=== PATIENT | female | born 1995 | race Caucasian/White ===

== ENCOUNTER → 2018-12-18 08:33 | Outpatient (CLI) | payer OTHER, SELFPAY ==
--- NOTE | 2018-12-18 08:38 | US_ITS ---
STUDY: ABDOMINAL ULTRASOUND - RIGHT UPPER QUADRANT REASON FOR VISIT: Female, 23 years old. 5 year history of upper mid abdominal pain. TECHNIQUE: Ultrasound evaluation of the right upper quadrant was performed with real-time and static arango-scale imaging. TECHNICAL QUALITY: Adequate. COMPARISON: Comparison is made with prior study March 28, 2014. FINDINGS: Liver: The liver measures 14.7 cm. There is normal echogenicity of the liver. The bile ducts are within normal limits. There is hepatic color flow. The direction of portal flow is hepatopetal. There is no demonstrated mass lesion. Gallbladder: Normal distended gallbladder. The gallbladder wall measures 2.3 mm. There is a negative sonographic Stark's sign. There is no pericholecystic fluid. There are no gallstones. Common Bile Duct (C.B.D.): The common bile duct measures 3.0 mm. Pancreas: Normal size of the head, body and tail of the pancreas. There is normal echogenicity of the pancreas. There is no demonstrated pancreatic mass or cyst. Right Kidney: Normal size of the right kidney. The right kidney measures 10.9 cm x 5.4 cm x 5.1 cm. Normal renal cortex. The right cortex measures 1.9 cm. There is no demonstrated renal mass or cyst. There is no right hydronephrosis. No hernia is seen along the linea alba. US/Abdomen Limited IMPRESSION: Normal right upper quadrant ultrasound examination. Electronically Signed: rBaden Tejada MD at 12:36 EST , Service support ,
== END ==
LOC: US 08:36
PROVIDERS: Family Provider Family Medicine; PCP Family Medicine; Referring Provider Family Medicine; Visit Provider Family Medicine
DX: K46.9 Unspecified abdominal hernia without obstruction or gangrene (principal)
CPT/HCPCS: 76705

== ENCOUNTER → 2019-12-04 12:31 | Outpatient (CLI) | payer OTHER, SELFPAY ==
[2019-02-11 08:12] VITALS: BMI 22.6
[2019-12-04 14:21] LABS: hCG Titer Quant., Serum 179 mIU/mL (1-3)
== END ==
PROVIDERS: PCP Family Medicine; Referring Provider Obstetrics & Gynecology; Visit Provider Obstetrics & Gynecology
DX: Z32.01 Encounter for pregnancy test, result positive (principal)
CPT/HCPCS: 36415; 84702

== ENCOUNTER → 2019-12-06 13:25 | Outpatient (CLI) | payer OTHER, SELFPAY ==
[2019-02-11 08:12] VITALS: BMI 22.6
[2019-12-06 14:53] LABS: hCG Titer Quant., Serum 387 mIU/mL (1-3)
== END ==
LOC: MTLAB 13:28
PROVIDERS: PCP Family Medicine; Referring Provider Obstetrics & Gynecology; Visit Provider Obstetrics & Gynecology
DX: Z32.01 Encounter for pregnancy test, result positive (principal)
CPT/HCPCS: 36415; 84702

== ENCOUNTER 2020-05-20 11:51 | Outpatient (CLI) | payer OTHER, SELFPAY ==
[2019-02-11 08:12] VITALS: BMI 22.6
[2020-05-20 12:07] VITALS: BP 109/67; PULSE 86; TEMP 36.5; O2SAT 100
[2020-05-20 12:09] VITALS: BMI 24.4
[2020-05-20 13:09] LABS: Fetal Fibronectin Negative
--- NOTE | 2020-05-20 16:56 | OB.TRI.NOTE ---
History of Present Illness Was patient seen by the physician?: Yes Reason For Visit: R/O LABOR Date of Service: 05/20/20 Final LIZ: 08/12/20 Gestational age: 28 Weeks and 0 Days History of Present Illness: Patient sent from office for threatened PTL Allergies No Known Allergies Allergy (Verified 02/11/19 08:12) Laboratory Studies: Laboratory Tests 05/20/20 Range/Units 11:40 Fibronectin Negative Physical Exam Cervix Dilation (cm): 1 - stable from office Station: -3 - 0 Effacement (%): 0 - posterior NST - FHR Rate Baby A Baseline: 130 Variability:: Moderate Accelerations:: 15 x 15 Decelerations:: Variable NST Reactive:: Yes Uterine Activity:: Irregular Impression/Plan 25yo female with threatened PTL Negative FFN Stable cervical exam & no regular ctxs thus no evidence PTL D/c home with PTL precautions
== END 2020-05-20 16:50 | disposition home or self-care (01) ==
PROVIDERS: PCP Family Medicine; Referring Provider Obstetrics & Gynecology; Visit Provider Obstetrics & Gynecology
DX: O60.03 Preterm labor without delivery, third trimester (principal); Z3A.28 28 weeks gestation of pregnancy
CPT/HCPCS: 59025; 59050; 82731; 99218; G0378

== ENCOUNTER 2020-07-19 03:40 | Outpatient (CLI) | payer OTHER, SELFPAY ==
[2020-07-19 03:55] VITALS: O2SAT 97
[2020-07-19 03:56] VITALS: BP 108/66; PULSE 82; TEMP 37
[2020-07-19 04:01] VITALS: BMI 25.0
[2020-07-19 04:36] LABS: ROM Internal Control Test YES-OK TO RESULT pt. (Internal QC)
[2020-07-19 04:37] LABS: ROM Patient Test Negative (Negative)
--- NOTE | 2020-07-19 13:41 | OB.TRI.NOTE ---
- Problem List (1) contractions Status: Acute (2) Uterine contractions Status: Acute (3) Leakage, amniotic fluid Status: Acute History of Present Illness Date of Service: 07/18/20 Was patient seen by the physician?: No Reason For Visit: R/O LABOR Date of Service: 07/18/20 Final LIZ: 08/12/20 Gestational age: 36 Weeks and 4 Days History of Present Illness: at 36w4d presents to labor and delivery with complaint of uterine contractions on and off throughout the day and progressively getting closer together. Unsure if leakage of fluid but some increased discharge. No vaginal bleeding. Good movement O: FHR 145, moderate variability, accels, reactive TOCO: Irregular SVE: 0.5cm, no gross ROM ROM pluse negative A:False Labor P: 1) Contractions decreased, ok to discharge home 2) Follow up as scheduled in office. Allergies No Known Allergies Allergy (Verified 07/19/20 04:32) Laboratory Studies: Laboratory Tests 07/19/20 Range/Units 04:05 Vag Amniotic Fld Detect Negative (Negative) Physical Exam Vitals: Vital Signs Temp Pulse BP Pulse Ox 98.6 F 82 108/66 97 07/19/20 03:56 07/19/20 03:56 07/19/20 03:56 07/19/20 03:55
== END 2020-07-19 06:15 | disposition home or self-care (01) ==
LOC: WPOUT 03:43 → OBT 03:43
PROVIDERS: PCP Family Medicine; Visit Provider Advanced Practice Midwife
DX: O47.03 False labor before 37 completed weeks of gestation, third trimester (principal); Z3A.36 36 weeks gestation of pregnancy
CPT/HCPCS: 59025; 59050; 84112; 99218; G0378

== ENCOUNTER 2020-07-25 14:05 | Outpatient (CLI) | payer OTHER, SELFPAY ==
[2020-07-25 14:21] VITALS: BP 109/71; PULSE 104
[2020-07-25 14:28] VITALS: BMI 24.7
[2020-07-25 16:14] VITALS: BP 109/67; PULSE 97
--- NOTE | 2020-07-26 10:32 | OB.TRI.NOTE ---
- Problem List (1) Uterine contractions Status: Acute (2) 37 weeks gestation of Status: Acute History of Present Illness Date of Service: 07/25/20 Was patient seen by the physician?: No Reason For Visit: R/O LABOR Final LIZ: 08/12/20 Gestational age: 37 Weeks and 4 Days History of Present Illness: With contractions for rule out labor Allergies No Known Allergies Allergy (Verified 07/26/20 02:05) Physical Exam Vitals: Vital Signs Pulse BP 97 109/67 07/25/20 16:14 07/25/20 16:14 NST - FHR Rate Baby A Baseline: 130 Variability:: Moderate Accelerations:: 15 x 15 Decelerations:: None NST Reactive:: Yes FHR Category:: Category I Uterine Activity:: ctx's q 2-4 min Impression/Plan NST reactive Cvx unchanged D/c home
== END 2020-07-25 16:40 | disposition home or self-care (01) ==
LOC: WPOUT 14:12 → WP 14:13
PROVIDERS: PCP Family Medicine; Referring Provider Obstetrics & Gynecology; Visit Provider Obstetrics & Gynecology
DX: O47.1 False labor at or after 37 completed weeks of gestation (principal); Z3A.37 37 weeks gestation of pregnancy
CPT/HCPCS: 59025; 59050; 99218; G0378

== ENCOUNTER 2020-07-26 01:51 | Inpatient (IN) | payer OTHER, SELFPAY ==
[2020-07-25 14:28] VITALS: BMI 24.7
[2020-07-26] VITALS (52 sets, daily range): BP systolic 84–123; BP diastolic 51–73; PULSE 74–101; RESP 16–18; TEMP 36.6–37.7; O2SAT 90–100; BMI 24.3
[2020-07-26] MEDS: Lactated Ringers 500 ML 999 ML IV ×2 (02:02→03:23)
[2020-07-26 02:11] LABS: Absolute Lymphocyte Count 1.57 X10^3/uL (0.83-4.51); Absolute Neutrophil Count 8.2 X10^3/uL (2.0-7.7); Basophil# 0.03 X10^3/uL; Basophil% 0.3 % (0-1); Eosinophil# 0.15 X10^3/uL; Eosinophils% 1.4 % (0-5); Hematocrit 35.3 % (37-47); Lymphocyte # 1.57 X10^3/ul (4.0); Lymphocyte % 14.2 % (19-41); Mean Corpuscular Hgb 30.2 pg (27.0-32.0); Mean Corpuscular Volume 88.7 fL (81-99); Mean Platelet Vol. 11.5 fl (6.2-12.0); Monocyte% 9.9 % (0-10); NRBC Flagged by Analyzer 0 % (0-5); Neutrophil # 8.19 X10^3/uL (2.7-7.7); Neutrophil % 73.8 % (47-70); Platelet Count 222 K/mm3 (150-450); RBC Distribution Width CV 12.6 % (11.6-14.6); RBC Distribution Width SD 41.4 fl (35.1-43.9); Red Blood Count 3.98 M/mm3 (4.2-5.4); White Blood Count 11.1 K/mm3 (4.4-11.0)
[2020-07-26] MEDS: fentaNYL-bupivacaine (epidural) 100 ML BAG EPIDURAL ×2 (03:12→07:28)
[2020-07-26] MEDS: Lactated Ringers 1,000 ML 50 ML IV (03:40)
--- NOTE | 2020-07-26 05:15 | PCM.HP.OB ---
- Problem List (1) 37 weeks gestation of Status: Acute (2) Multiparous Status: Acute (3) Positive GBS test Status: Acute (4) Active labor at term Status: Acute History Date of Admission: 07/26/20 Final LIZ: 08/12/20 Gestational age: 37 Weeks and 4 Days History of this : This is a 25 year-old, G 2, P 0, at 37 weeks gestational age who presents with contractions at 6 cm dilated. Allergies No Known Allergies Allergy (Verified 07/26/20 02:05) Home Medications: Home Medications Vits [Prenatabs FA] 1 tab PO DAILY 05/20/20 Smoking Status: Never smoker Number of Fetus(es): 1 NST - FHR Rate Baby A FHR Category:: Category I Uterine Activity:: Ctx q 2-5 min History Past Pregnancies: Past Pregnancies Delivery Date Name GA/ Weeks Outcome Route Wt Infant Sex Labor Length Anesthesia Delivery Location Provider FOB Labs: See [facility] record Expected Infant Delivery Method: Spontaneous Vaginal Physical Exam Vitals: Vital Signs Temp Pulse BP Pulse Ox 98.4 F 93 97/64 97 07/26/20 04:47 07/26/20 04:56 07/26/20 04:56 07/26/20 04:47 General: Alert HEENT: Atraumatic Abdomen: Soft, Non Tender, Gravid Extremities:: No edema Neurological: Neuro grossly intact [employer]ESSOR [employer] EARLY CHILDHOOD EDUCATION: Normal external genitalia Estimated gestational size: Appropriate for gestational size Presentation: Cephalic Cervix Dilation (cm): 6 - per RN on admission Assessment/Plan All Active Problems (Last Reviewed 02/11/19 @ 08:12 by Loreto Ralph) contractions (Acute) Uterine contractions (Acute) Leakage, amniotic fluid (Acute) 37 weeks gestation of (Acute) Multiparous (Acute) Positive GBS test (Acute) Active labor at term (Acute) This is a 25 year-old, G 1, P 0, at 37 weeks gestational age who presents with ctx's at 6 cm dilated. - Admit for routine intrapartum care - GBS positive, PCN - Epidural PRN - EFW estimated to be < 4500 g and pelvis adequate. Anticipate
--- NOTE | 2020-07-26 05:26 | PCM.PN.BLA ---
Progress Note At bedside to check pt. Cvx 9.5/90/0 with BBOW. PCN has been running for 3 hours. Category 1 tracing. Anticipate . STROKE Vital Signs/Narrative: Vital Signs Temp Pulse BP Pulse Ox 07/26/20 04:56 93 97/64 07/26/20 04:48 101 H 84/54 L 07/26/20 04:47 98.4 F 86 89/54 L 97 07/26/20 03:50 84 93/63 07/26/20 03:49 89 100 07/26/20 03:45 88 95/68 07/26/20 03:44 78 100 07/26/20 03:40 82 102/63 07/26/20 03:39 84 100 07/26/20 03:35 85 102/62 07/26/20 03:34 91 100 07/26/20 03:31 78 99/61 07/26/20 03:29 85 100 07/26/20 03:26 86 104/64 07/26/20 03:24 89 100 07/26/20 03:20 87 106/72 07/26/20 03:19 89 99 07/26/20 03:16 82 93/52 L 07/26/20 03:15 80 95/51 L 07/26/20 03:14 86 100 07/26/20 03:13 99.0 F 07/26/20 03:10 85 98/55 L 07/26/20 03:09 84 100 07/26/20 03:05 84 106/55 L 07/26/20 03:04 98 100 07/26/20 03:02 94 90 07/26/20 03:00 83 120/71 07/26/20 02:59 85 100 07/26/20 02:55 95 123/71 H 07/26/20 02:54 90 100 07/26/20 02:51 78 110/68 07/26/20 01:56 98.4 F 75 116/73
[2020-07-26] MEDS: Oxytocin 30 units/NS 500 ml 30 UNITS/500 ML IV.SOLN IV (06:26)
[2020-07-26] MEDS: Oxytocin 30 units/NS 500 ml 30 UNITS/500 ML IV.SOLN 334 UNITS IV (08:01)
[2020-07-26] MEDS: Methylergonovine 0.2 MG/ML Ampul IM (08:03)
[2020-07-26] MEDS: Ondansetron 4 MG/2 ML Vial IV (08:19)
--- NOTE | 2020-07-26 08:25 | PCM.OPRPT ---
Problem List (1) 37 weeks gestation of Status: Acute (2) Multiparous Status: Acute (3) Positive GBS test Status: Acute (4) Active labor at term Status: Acute Report of Operation Date of Procedure: 07/26/20 Pre-Operative Diagnosis: 37 weeks, active labor Post-Operative Diagnosis: As above Surgery/Procedure Performed:: Type of Anesthesia:: Epidural Special Medications: Methergine Specimen's removed: Placenta Drains: Salazar Estimated Blood Loss (mL): 400 Description of Procedure: Patient progressed to complete after receiving 4 hours of penicillin for GBS positive status. AROM was performed for clear fluid. Her contractions had spaced apart so Pitocin was started per protocol. With pushing the 's head was delivered in right occiput posterior position followed by the anterior shoulder, posterior shoulder, and body without any force or delay. A viable male infant was delivered atraumatically and placed on maternal abdomen. The cord was clamped and cut after a 60 sec delay by the father of the baby. The placenta was removed with fundal massage and noted to be normal-appearing and intact with a three-vessel cord. The uterus was explored x1. The uterus was noted to be boggy. Uterine massage and Methergine x1 were given. The uterus then firmed up and bleeding was hemostatic. No lacerations were noted. Vaginal sweep was performed. Sponge and instrument count was correct. Grafts/Implants Used: None - Complications None - Admit VTE Documentation VTE Present on Admission: No Vaginal Delivery Maternal Presentation: Active Labor Amniotic Membrane Rupture Type: Spontaneous Amniotic Fluid Description: Clear Surgery/ Procedure Performed: Spontaneous Vaginal Delivery Type of Anesthesia: Epidural Presentation: Vertex Placental Delivery Description: Spontaneous Cord Vessel Description: 3 Vessels Cord Entanglement: None Infant A gender: Male (1 minute): 9 (5 minute): 9 Episiotomy Description: None Laceration: None Medications given after delivery: IV Pitocin, IM Methergin Complications: None
--- NOTE | 2020-07-26 10:30 | NURSING ---
Report given to Britney Kang RN. She will assume care at this time.
[2020-07-26] MEDS: Acetaminophen 500 MG Tablet 1000 MG PO (19:41)
[2020-07-27 00:20] VITALS: BP 86/47; PULSE 74; RESP 18; TEMP 37.1
[2020-07-27] MEDS: Acetaminophen 500 MG Tablet 1000 MG PO (04:19)
[2020-07-27 04:20] VITALS: BP 99/62; PULSE 74; RESP 18; TEMP 36.4
[2020-07-27 09:00] VITALS: BP 95/64; PULSE 95; RESP 16; TEMP 36.7
--- NOTE | 2020-07-27 10:52 | PCM.PN.OB ---
Patient Problems: Active and Suspected Problems (Last Reviewed 02/11/19 @ 08:12 by Loreto Ralph) 37 weeks gestation of (Acute) Multiparous (Acute) Positive GBS test (Acute) Active labor at term (Acute) Subjective: Patient is doing well. Ambulating and voiding without difficulty. She is tolerating regular diet without nausea or vomiting. She denies lightheadedness, dizziness, chest pain, shortness of breath, leg pain. Lochia normal. - Physical Exam Vitals/I&O's: Vital Signs Temp Pulse Resp BP Pulse Ox 98.1 F 95 16 95/64 98 07/27/20 09:00 07/27/20 09:00 07/27/20 09:00 07/27/20 09:00 07/26/20 15:42 Oxygen Delivery Method Room Air Weight: 137 lb 2.04 oz Body Mass Index (BMI) 24.3 Intake and Output for Last 24 Hours 07/25/20 07/26/20 07/27/20 23:59 23:59 23:59 Intake Total 1768.14 / 1768.14 Output Total 1550 / 1550 Balance 218.14 / 218.14 General: Alert, No apparent distress HEENT: Atraumatic Abdomen: Soft, Non Tender Extremities: No edema, No Calf Tenderness Skin: No rashes Neurological: Neuro grossly intact Psych/Mental Status: Normal Affect, Appropriate Current Medications Acetaminophen (Tylenol) 1,000 mg PO Q8H PRN PRN PRN Reason: Pain Score 1-3/10 Last Admin: 07/27/20 04:19 Dose: 1,000 mg Documented by: Bisacodyl (Dulcolax) 10 mg RECTAL UD PRN PRN Reason: If no BM Dibucaine (Dibucaine) 1 applic TOPICAL TID PRN PRN; Protocol PRN Reason: Discomfort Hydrocortisone (Hytone) 1 applic TOPICAL TID PRN PRN; Protocol PRN Reason: Discomfort Ibuprofen (Motrin) 600 mg PO Q6H PRN PRN PRN Reason: Pain Score 1-3/10 Methylergonovine Maleate (Methergine) 0.2 mg IM X1 PRN PRN Reason: Excess bleeding/uterine atony Last Admin: 07/26/20 08:03 Dose: 0.2 mg Documented by: Ondansetron HCl (Zofran) 4 mg IV Q4H PRN PRN PRN Reason: Nausea Senna/Docusate Sodium (Senokot-S, Cathy-Colace) 1 - 2 tablet PO DAILY PRN PRN PRN Reason: Constipation Simethicone (Mylicon) 80 mg PO PCHS PRN PRN Reason: Indigestion/Stomach pain Sodium Chloride () 5 - 15 ml IV UD PRN PRN Reason: SALINE FLUSH Medical Necessity - Tobacco Use Smoking Status: Never smoker Assessment/Plan All Active Problems (Last Reviewed 02/11/19 @ 08:12 by Loreto Ralph) contractions (Acute) Uterine contractions (Acute) Leakage, amniotic fluid (Acute) 37 weeks gestation of (Acute) Multiparous (Acute) Positive GBS test (Acute) Active labor at term (Acute) Patient is day 1 from a spontaneous vaginal delivery. She is doing well and desires to go home. Reviewed discharge instructions.
--- NOTE | 2020-07-27 10:53 | DCINST_ITS ---
Discharge Diet: No Restrictions Discharge Activity: May Shower, May Take a Tub Bath May resume sexual activity in: 6 weeks Ice area for (Minutes): 15 Weight Bearing Status: Weight bearing as tolerated Lifting Restrictions: Nothing heavier than baby Call your doctor if you observe: Fever of 101 or Higher, Inability to urinate, Inability to have a bowel movement, Using more than one pad per hour, Shortness of breath, Dizziness, Fainting spells, Swelling in the ankles, Chest pain, Increased palpitations (irregular heartbeat), Calf discomfort, Uncontrolled pain Additional Instructions: If you experience any of the following, contact your healthcare provider. * Bleeding that soaks a pad every hour for 2 hours * Fever 100.4 or higher * Unrelieved incision or abdominal pain * Swelling, redness, discharge or bleeding from your incision or episiotomy site * Your incision begins to separate * Problems urinating (including inability to urinate or burning while ur inating). * Visual changes * Severe headache * Flu-like symptoms * Pain or redness in one of both of your breasts * Pain, warmth, tenderness or swelling in your legs, especially the calf area * Frequent nausea and vomiting * Symptoms of depression or anxiety If you experience any of the following, call 911 or go to the nearest Emergency Room. * Chest pain * Problems breathing * Seizure activity * Partial or complete paralysis of a body part, slurred speech, weakness or drooping of the face, or a sudden inability to walk or hold your balance Allergies/Adverse Reactions: Allergies No Known Allergies Allergy (Verified 07/26/20 02:05) Medications to take at Discharge Vits [Prenatabs FA] 1 tab PO DAILY 05/20/20 When: 6 week Primary Care Physician: Te Zacarias MD [Primary Care Provider] - Test Results: Test results from this visit will be discussed in further detail at your follow- up appointment, if applicable.
== END 2020-07-27 12:45 | disposition home or self-care (01) | DRG 807 ==
LOC: WPOUT 01:52 → WP 01:52
PROVIDERS: Admitting Provider Obstetrics & Gynecology; PCP Family Medicine; Referring Provider Obstetrics & Gynecology; Visit Provider Obstetrics & Gynecology
DX: O99.824 Streptococcus B carrier state complicating childbirth (principal); Z37.0 Single live birth; Z3A.37 37 weeks gestation of pregnancy
CPT/HCPCS: 59025; 59050; 85025; 86850; 86900; 86901; 99218; J7120; G0378; J2405

== ENCOUNTER → 2021-07-08 16:02 | Outpatient (CLI) | payer OTHER, SELFPAY | LOC: MFPLAB 16:03 → LABSPEC 16:04 | PROVIDERS: PCP Family Medicine; Referring Provider Family Medicine; Visit Provider Family Medicine | DX: J02.9 Acute pharyngitis, unspecified (principal) | CPT/HCPCS: 87070 ==

== ENCOUNTER 2024-01-27 03:42 | Emergency (ER) | payer OTHER, SELFPAY ==
[2024-01-27 03:45] VITALS: BP 110/64; PULSE 107; RESP 18; TEMP 36.7; O2SAT 100; BMI 22.6
--- NOTE | 2024-01-27 03:54 | EDS_ITS ---
HPI History of Present Illness Chief Complaint: Poisoning Informant: patient Narrative Narrative: Patient presents due to concern for drugs being put in her drinks. She states that she had a couple drinks at lunch yesterday. She states that she did not drink more alcohol than what she normally would. She developed nausea and vomiting and states that her head just feels fuzzy and off. She feels like she is tingling all over. She continues to have vomiting and cannot keep water down. PFSH PFSH Medical History no medical history no medical history Home Medications vits,calcium no.78-iron fumarate-folic acid 29 mg-1 mg tablet 1 tab PO DAILY 05/20/20 [History Last Taken 07/25/20 08:00 1 tab] ondansetron 4 mg disintegrating tablet 4 mg PO Q8H PRN PRN Nausea #10 tabs 01/27/24 [Rx Last Taken Unknown] Allergy/AdvReac Type Severity Reaction Status Date / Time No Known Allergies Allergy Verified 01/27/24 03:43 Surgical History no surgical history Social History Smoking Status: Never smoker ROS ROS ED Constitutional Constitutional ED: Denies chills or fever(s) Eyes Eyes: Denies discharge from eye(s) ENT ENT ED: Denies discharge from eye(s), rhinorrhea or sore throat Cardiovascular Cardiovascular: Denies chest pain or palpitations Respiratory/Chest Respiratory/Chest: Denies cough or dyspnea Gastrointestinal Gastrointestinal: Reports nausea and vomiting; Denies abdominal pain Genitourinary Genitourinary ED: Denies dysuria Musculoskeletal Musculoskeletal: Denies back pain or extremity pain Integumentary Denies Abrasions or rash Neurologic Neurologic: Reports paresthesias; Denies headache(s) or weakness Psychiatric Psychiatric: Denies anxiety or depression Allergic/Immunologic Allergic/Immunologic ED: Denies lip swelling or urticaria EXAM Physical Exam Const Vital Signs: 01/27/24 03:45 01/27/24 03:48 01/27/24 05:43 Temperature 98.1 F 98.3 F Temperature Source Temporal Temporal Pulse Rate 107 H 95 Respiratory Rate 18 Respiratory Effort Normal Respiratory Pattern Normal Blood Pressure 110/64 99/58 L Blood Pressure Mean 79 71 Pulse Ox 100 100 Oxygen Delivery Method Room Air Room Air Positive well nourished and well developed General Appearance ED: well developed HEENT Reports moist mucous membranes Eyes EOMs intact bilaterally Chest Wall inspection of chest normal and palpation of chest normal Resp normal respiratory effort and clear to auscultation bilaterally Cardio regular rate and regular rhythm GI non-tender Auscultation: hypoactive bowel sounds Palpation: soft Extremity normal to inspection Neuro oriented x3 Neuro Narrative: No focal neurologic deficit. Psych mental status grossly normal Skin no rashes or lesions noted MDM MDM MDM Narrative Medical decision making narrative: IV line established. Patient given normal saline and Zofran. Labwork obtained to evaluate for leukocytosis, anemia, and electrolyte derangement. Urinalysis obtained to evaluate for infection/hematuria. Urine tox screen will be obtained. Patient was advised that there are multiple synthetic drugs that may not be picked up on her tox screen. History & Record Review Discussion w/independent historian: Patient Lab Data Attestation: I reviewed the patient's lab results. Labs: Laboratory Results - last 24 hr 01/27/24 01/27/24 04:04 04:11 WBC 14.3 H RBC 5.09 Hgb 14.5 Hct 43.6 MCV 85.7 MCH 28.5 MCHC 33.3 RDW Std Deviation 38.9 RDW Coeff of Jessi 12.4 Plt Count 340 MPV 10.3 Immature Gran % (Auto) 0.500 Neut % (Auto) 89.3 H Lymph % (Auto) 7.1 L [place] % (Auto) 2.8 Eos % (Auto) 0.0 Baso % (Auto) 0.3 Absolute Neuts (auto) 12.8 H Absolute Lymphs (auto) 1.01 Nucleated RBC % 0 Sodium 141 Potassium 3.6 Chloride 107 Carbon Dioxide 24.0 Anion Gap 10 BUN 11 Creatinine 0.93 Estim Creat Clear Calc 70.59 Est GFR (MDRD) Af Amer 91 Est GFR (MDRD) Non-Af 75 BUN/Creatinine Ratio 11.8 Glucose 115 H Calcium 9.5 Serum , Qual NEGATIVE Urine Color Yellow Urine Clarity Sl. Cloudy Urine pH 7.0 Ur Specific [place] 1.010 Urine Protein 30 H Urine Glucose (UA) Normal Urine Ketones 150 A* Urine Occult Blood Negative Urine Nitrite Negative Urine Bilirubin Negative Urine Urobilinogen Normal Ur Leukocyte Esterase 100 H Urine RBC 0 SEEN Urine WBC 10-25 SEEN Ur Squamous Epith Cells 50-100 SEEN Ur Transition Epith Cell 0 SEEN Ur Renal Epithelial Cell 0 SEEN Urine Bacteria 3+ Hyaline Casts 0 SEEN Fine Granular Casts 0 SEEN Coarse Granular Casts 0 SEEN Waxy Casts 0 SEEN RBC Casts 0 SEEN Urine Mucus 2+ Urine Opiates Screen NEGATIVE Urine Methadone Screen NEGATIVE Ur Barbiturates Screen NEGATIVE Ur Phencyclidine Scrn NEGATIVE Ur Amphetamines Screen NEGATIVE MDMA (Ecstasy) Screen NEGATIVE U Benzodiazepines Scrn NEGATIVE Urine Cocaine Screen NEGATIVE U Cannabinoids Screen NEGATIVE Ur Drug Screen Comment Ethyl Alcohol < 3.0 Treatment and Re-Evaluation :: White blood cell count is elevated at 14.3 with 89% neutrophils. Hemoglobin normal at 14.5. Chemistry studies unremarkable with normal renal function. Potassium is normal at 3.6. test is negative. Urinalysis is contaminated with epithelial cells 50-100. There is 3+ bacteria but only 10-25 white cells and no nitrites. Given the patient does not have any urinary symptoms I would not treat this as an acute infection. Urine tox screen is negative. EtOH is less than 3. On repeat evaluation patient does have some improvement in her nausea. She is able to tolerate p.o. fluids. I did advise her that her tox screen here is negative, but did again remind her that there are some substances that we cannot test for. I will write her prescription for Zofran and she will follow bland diet. Return instructions given. Discharge Plan Triage Chief Complaint: Poisoning ED Provider: Pepper Sy Dx/Rx/DC Orders Clinical Impression: Vomiting Instructions: ED Vomiting (Adult) Prescriptions: New ondansetron 4 mg tablet,disintegrating 4 mg PO Q8H PRN PRN (Reason: Nausea) Qty: 10 0RF No Action vit,[id number] 1 TABLET tablet 1 tab PO DAILY Primary Care Provider: Te Zacarias Referrals: Te Zacarias MD [Primary Care Provider] - 1-2 Weeks Disposition Disposition: Home, Self Care
[2024-01-27 04:09] LABS: Red Blood Cells-Urine 0 SEEN /hpf (0-5)
[2024-01-27 04:10] LABS: Color, Urine Yellow (Yellow); Glucose, Dipstick Normal (Normal); Leukocyte Esterase-Dipstick 100 /ul (Negative); Nitrite-Dipstick Negative (Negative); Occult Blood-Urine Negative /ul (Negative); Protein-Dipstick 30 mg/dl (Negative); Urine Bilirubin Dipstick Negative (Negative); Urine Clarity Sl. Cloudy (Clear); Urine Urobilinogen Normal (Normal)
[2024-01-27 04:13] LABS: Ketone-Dipstick 150 mg/dl (Negative)
[2024-01-27 04:17] LABS: Absolute Lymphocyte Count 1.01 X10^3/uL (0.83-4.51); Absolute Neutrophil Count 12.8 X10^3/uL (2.0-7.7); Basophil# 0.04 X10^3/uL; Basophil% 0.3 % (0-1); Hematocrit 43.6 % (37-47); Hemoglobin 14.5 g/dL (12.0-15.0); Lymphocyte # 1.01 X10^3/ul (0.83-4.51); Lymphocyte % 7.1 % (19-41); Mean Corp Hgb Conc 33.3 g/dL (32-36); Mean Corpuscular Hgb 28.5 pg (27.0-32.0); Mean Corpuscular Volume 85.7 fL (81-99); Mean Platelet Vol. 10.3 fl (6.2-12.0); Monocyte% 2.8 % (0-10); NRBC Flagged by Analyzer 0 % (0-5); Neutrophil % 89.3 % (47-70); Platelet Count 340 K/mm3 (150-450); RBC Distribution Width CV 12.4 % (11.6-14.6); RBC Distribution Width SD 38.9 fl (35.1-43.9); Red Blood Count 5.09 M/mm3 (4.2-5.4); White Blood Count 14.3 K/mm3 (4.4-11.0)
[2024-01-27] MEDS: Ondansetron 4 MG/2 ML Vial IV ×2 (04:21→06:02)
[2024-01-27] MEDS: 0.9% Normal Saline (1000mL) 1,000 ML 1000 ML IV (04:21)
[2024-01-27] MEDS: 0.9% Normal Saline (1000mL) 1,000 ML 150 ML IV (04:21)
[2024-01-27 04:27] LABS: Bacteria 3+ /hpf (None Seen); Coarse Granular Cast 0 SEEN /lpf (0-5 /lpf); Fine Granular Cast- Urine 0 SEEN /lpf (0-5); Hyaline Cast 0 SEEN /lpf (0-5); Mucous, Urine 2+ /hpf (<or=2+); Red Cell Cast 0 SEEN /lpf (None Seen); Renal Epithelial Cells 0 SEEN /hpf (0-5); Squamous Epithelial Cells - UA 50-100 SEEN /hpf (5-10); Transitional Epithelial - Ur 0 SEEN /hpf (0-5); Waxy Cast-Urine 0 SEEN /lpf (None Seen); White Blood Cells 10-25 SEEN /hpf (0-5)
[2024-01-27 04:28] LABS: Internal QC Validated? YES +Cl - CLEAR BKGD; Pregnancy, Serum, hCG Quali. NEGATIVE Negative
[2024-01-27 04:31] LABS: Amphetamine Urine VISTA NEGATIVE (<1000 ng/mL); Barbiturate Urine VISTA NEGATIVE (< 200 ng/mL); Benzodiazepine Urine VISTA NEGATIVE (< 200 ng/mL); Cocaine Urine VISTA NEGATIVE (< 300 ng/mL); Ecstacy Urine VISTA NEGATIVE (< 500 ng/mL); Methadone Urine VISTA NEGATIVE (< 300 ng/mL); PCP Urine VISTA NEGATIVE (< 25 ng/mL); THC Urine VISTA NEGATIVE (< 50 ng/mL); Vista UDS pH Range 7
[2024-01-27 04:32] LABS: Anion Gap 10 (5-15); BUN 11 mg/dL (7-18); BUN/Creat Ratio 11.8 RATIO (10-20); Calcium,Total 9.5 mg/dL (8.5-10.1); Chloride 107 mmol/L (98-107); Creatinine, Serum 0.93 mg/dL (0.55-1.02); EST Glomerular Filtration Rate 75 mL/min (>60); Est Glom Filt Rate - Afr Amer 91 mL/min (>60); Estimated Creatinine Clearance 70.59 ml/min; Glucose 115 mg/dL (74-106); Potassium 3.6 mmol/L (3.5-5.1); Sodium Level 141 mmol/L (136-145)
[2024-01-27 04:52] LABS: Alcohol, Blood (Medical)-Serum < 3.0 mg/dL
[2024-01-27 05:43] VITALS: BP 99/58; PULSE 95; TEMP 36.8; O2SAT 100
[2024-01-27 06:04] VITALS: BP 98/76; PULSE 95; RESP 16; TEMP 525.5; TEMP 978; O2SAT 100
== END 2024-01-27 06:12 | disposition home or self-care (01) ==
PROVIDERS: Emergency Provider Emergency Medicine; PCP Family Medicine; Visit Provider Emergency Medicine
DX: R11.2 Nausea with vomiting, unspecified (principal)
CPT/HCPCS: 80048; 80307; 80320; 81001; 84703; 85025; 96361; 96374; 96375; 99282; J7030; A4216; G0480; J2405